=== PATIENT | male | born 1950 | race Hispanic/Latino ===

== ENCOUNTER 2018-09-01 15:02 | Inpatient (IN) | payer MEDICARE ==
[~2018-09-01] VITALS: Ht 160 cm; Wt 69.4 kg
[2018-09-01 15:29] LABS: BASOPHILS % (AUTO) 0.9 % (0.0-5.0); EOSINOPHILS % (AUTO) 0.1 % (0.0-8.0); HEMATOCRIT 42.9 % (42-54); MEAN CORPUSCULAR HEMOGLOBIN 31.4 pg (27.0-33.0); MEAN CORPUSCULAR HGB CONC 33.3 g/dL (32.0-36.0); MEAN CORPUSCULAR VOLUME 94.4 fL (79-99); MONOCYTES % (AUTO) 7.8 % (3.0-13.0); NEUTROPHILS % (AUTO) 84.2 % (40.0-77.0); PLATELET COUNT (AUTO) 193 K/uL (130-400); RED BLOOD CELL COUNT(AUTO) 4.54 MIL/uL (4.50-6.20); RED CELL DISTRIBUTION WIDTH 15.7 % (11.0-15.5); WHITE BLOOD COUNT (AUTO) 6.2 K/uL (4.8-10.8)
[2018-09-01 15:31] LABS: APPEARANCE,URINE Clear (CLEAR); BILIRUBIN,URINE Small (NEGATIVE); GLUCOSE, URINE (UA) Negative (NEGATIVE); KETONES,URINE Trace mg/dL (NEGATIVE); LEUKOCYTE ESTERASE ,URINE Trace (NEGATIVE); NITRATE,URINE Positive (NEGATIVE); OCCULT BLOOD,URINE Negative (NEGATIVE); PH,URINE 5.5 (5.0-8.0); PROTEIN,URINE 300 (NEGATIVE)
[2018-09-01 15:45] LABS: RBC,URINE None Seen /HPF (0-1); WBC,URINE 0-1 /HPF (0-1)
[2018-09-01 15:46] LABS: BACTERIA,URINE Few /HPF (None Seen); COLOR,URINE Dark Yellow (YELLOW)
[2018-09-01 15:47] LABS: SQUAMOUS EPITHELIAL CELL,UR None Seen /HPF (0-2)
[2018-09-01 16:16] LABS: CREATININE 1.1 mg/dL (0.5-1.5); POTASSIUM 4.1 mmol/L (3.5-5.1)
[2018-09-01 16:21] LABS: ALBUMIN 3.2 g/dL (3.5-5.0); BILIRUBIN,TOTAL 1.7 mg/dL (0.2-1.0); TOTAL PROTEIN, SERUM 7.7 g/dL (6.0-8.3)
[2018-09-01] MEDS ORDERED: FUROSEMIDE 10 MG/ML 4ML VIAL ONE (17:02)
[2018-09-01] MEDS ORDERED: HYDRALAZINE HCL 20 MG/ML VIAL IV PRN (18:00)
[2018-09-01] MEDS ORDERED: MAG HYDROX/AL HYDROX/SIMETH ES 30 ML SUSP UDCUP PO PRN (18:00)
[2018-09-01] MEDS ORDERED: ZOLPIDEM TARTRATE 5 MG TAB PO PRN (18:00)
[2018-09-01] MEDS ORDERED: ACETAMINOPHEN 325 MG TAB PO PRN (18:00)
[2018-09-01] MEDS ORDERED: PHARMACY COMMUNICATION MISC SCH ×2 (18:00→21:30)
[2018-09-01] MEDS ORDERED: ONDANSETRON HCL 4 MG/2 ML VIAL IV PRN (18:00)
[2018-09-01] MEDS: LEVOFLOXACIN 500 MG/D5W 100 ML 100 ML IV SCH (18:00)
[2018-09-01] MEDS: SPIRONOLACTONE 25 MG TAB PO SCH (18:00)
[2018-09-01] MEDS ORDERED: SPIRONOLACTONE 25 MG TAB ONE (19:31)
[2018-09-01] MEDS ORDERED: LEVOFLOXACIN 500 MG/D5W 100 ML 100 ML ONE (19:31)
[2018-09-01 19:35] LABS: INR 1.18 (0.85-1.15); PROTHROMBIN TIME 12.4 SEC (9.6-11.6)
[2018-09-01 19:40] LABS: HEMOGLOBIN A1C 6.3 % (4.0-6.0)
[2018-09-01 20:45] VITALS: BP 134/95
[2018-09-01] MEDS: BUMETANIDE IV SCH (20:56)
[2018-09-01] MEDS ORDERED: LORAZEPAM 2 MG/ML 1 ML VIAL IVP PRN (21:15)
[2018-09-01] MEDS ORDERED: CHLORDIAZEPOXIDE HCL 25 MG CAP ONE (21:27)
[2018-09-01] MEDS: CHLORDIAZEPOXIDE HCL 25 MG CAP PO SCH (22:00)
[2018-09-01] MEDS: FOLIC ACID IV SCH (23:12)
[2018-09-01] MEDS: M V I IV SCH (23:12)
[2018-09-01] MEDS: THIAMINE IV SCH (23:12)
[2018-09-01] MEDS: [UNRECOGNIZED DRUG - OTHER] IV SCH (23:12)
[2018-09-01] MEDS ORDERED: PNEUMOCOCCAL VACCINE POLYVALENT 0.5 ML/VIAL [PPV] IM ONE (23:15)
[2018-09-01] MEDS ORDERED: ASPI-555 PO (23:29)
[2018-09-02] VITALS: BP 128/84
[2018-09-02] MEDS: BUMETANIDE IV SCH ×2 (01:55→11:39)
[2018-09-02] MEDS ORDERED: PNEUMOCOCCAL VACCINE POLYVALENT 0.5 ML/VIAL [PPV] ONE ×2 (02:30→02:32)
[2018-09-02 04:00] VITALS: BP 130/86
[2018-09-02] MEDS: CHLORDIAZEPOXIDE HCL 25 MG CAP PO SCH ×3 (07:01→22:36)
[2018-09-02 08:00] VITALS: BP 136/89
[2018-09-02] MEDS ORDERED: PANTOPRAZOLE 40 MG/VIAL IVP SCH (09:00)
[2018-09-02] MEDS: SPIRONOLACTONE 25 MG TAB PO SCH (09:40)
[2018-09-02] MEDS: THIAMINE HCL 100 MG TABLET PO SCH (09:41)
[2018-09-02] MEDS: FOLIC ACID/VITAMIN B COMP W-C 1 MG CAPSULE PO SCH (09:41)
[2018-09-02] MEDS: ENOXAPARIN SODIUM 30 MG/0.3 ML SQ SCH (09:42)
[2018-09-02 10:35] LABS: HEMATOCRIT 43.6 % (42-54); MEAN CORPUSCULAR HEMOGLOBIN 30.4 pg (27.0-33.0); MEAN CORPUSCULAR HGB CONC 32.3 g/dL (32.0-36.0); MEAN CORPUSCULAR VOLUME 94.1 fL (79-99); PLATELET COUNT (AUTO) 153 K/uL (130-400); RED BLOOD CELL COUNT(AUTO) 4.64 MIL/uL (4.50-6.20); RED CELL DISTRIBUTION WIDTH 15.9 % (11.0-15.5); WHITE BLOOD COUNT (AUTO) 6.2 K/uL (4.8-10.8)
[2018-09-02 10:41] LABS: INR 1.27 (0.85-1.15); PARTIAL THROMBOPLASTIN TIME 33.7 SEC (26.3-35.5); PROTHROMBIN TIME 13.3 SEC (9.6-11.6)
[2018-09-02 11:12] LABS: BILIRUBIN,TOTAL 2.2 mg/dL (0.2-1.0); POTASSIUM 3.9 mmol/L (3.5-5.1); THYROID STIMULATING HORMONE 3.16 uIU/mL (0.36-3.74); TOTAL PROTEIN, SERUM 7.6 g/dL (6.0-8.3)
[2018-09-02 11:55] VITALS: BP 144/93
[2018-09-02 16:00] VITALS: BP 111/84
[2018-09-02] MEDS: LEVOFLOXACIN 500 MG/D5W 100 ML 100 ML IV SCH (17:30)
[2018-09-02 20:00] VITALS: BP 113/68
[2018-09-03] VITALS (13 sets, daily range): BP systolic 90–107; BP diastolic 56–73
[2018-09-03 05:23] LABS: BASOPHILS % (AUTO) 0.9 % (0.0-5.0); EOSINOPHILS % (AUTO) 0.5 % (0.0-8.0); HEMATOCRIT 39.2 % (42-54); LYMPHOCYTES % (AUTO) 11.6 % (21.0-51.0); MEAN CORPUSCULAR HEMOGLOBIN 31.3 pg (27.0-33.0); MEAN CORPUSCULAR HGB CONC 33.3 g/dL (32.0-36.0); MONOCYTES % (AUTO) 15.8 % (3.0-13.0); NEUTROPHILS % (AUTO) 71.2 % (40.0-77.0); PLATELET COUNT (AUTO) 162 K/uL (130-400); RED BLOOD CELL COUNT(AUTO) 4.17 MIL/uL (4.50-6.20); RED CELL DISTRIBUTION WIDTH 15.7 % (11.0-15.5)
[2018-09-03 05:29] LABS: POTASSIUM 3.2 mmol/L (3.5-5.1)
[2018-09-03] MEDS: CHLORDIAZEPOXIDE HCL 25 MG CAP PO SCH ×3 (05:50→22:13)
[2018-09-03] MEDS: PANTOPRAZOLE SODIUM 40 MG TABLET.DR PO SCH (07:02)
[2018-09-03] MEDS: ENOXAPARIN SODIUM 30 MG/0.3 ML SQ SCH (09:00)
[2018-09-03] MEDS: THIAMINE HCL 100 MG TABLET PO SCH (10:41)
[2018-09-03] MEDS: FOLIC ACID/VITAMIN B COMP W-C 1 MG CAPSULE PO SCH (10:42)
[2018-09-03] MEDS: SPIRONOLACTONE 25 MG TAB PO SCH (10:42)
[2018-09-03 13:04] LABS: ALBUMIN,BODY FLUID 2.1 g/dL
[2018-09-03 13:49] LABS: APPEARANCE BODY FLUID SLIGHTLY CLOUDY (CLEAR); COLOR,BODY FLUID DARK YELLOW (LT YELLOW); SPECIMENTYPE,BODY FLUID PARACENTESIS; TOTAL VOLUME,BODY FLUID 2000 mL
[2018-09-03 13:50] LABS: BODY FLUID RBC 3250 /cu. mm.; BODY FLUID WBC 272 /cu. mm.
[2018-09-03 14:02] LABS: BF LYMPHOCYTE 85 %; BF MESOTHELIAL 13 %; BF MONOCYTE 1 %
[2018-09-03] MEDS: THIAMINE IV SCH (15:34)
[2018-09-03] MEDS: FOLIC ACID IV SCH (15:34)
[2018-09-03] MEDS: M V I IV SCH (15:34)
[2018-09-03] MEDS: [UNRECOGNIZED DRUG - OTHER] IV SCH (15:34)
[2018-09-03] MEDS ORDERED: LIDOCAINE HCL MPF 1% 5ML VIAL ONE (16:44)
[2018-09-03] MEDS: LEVOFLOXACIN 500 MG/D5W 100 ML 100 ML IV SCH (19:28)
[2018-09-04 04:00] VITALS: BP 106/70
[2018-09-04] MEDS: CHLORDIAZEPOXIDE HCL 25 MG CAP PO SCH ×2 (06:09→14:00)
[2018-09-04] MEDS: PANTOPRAZOLE SODIUM 40 MG TABLET.DR PO SCH (06:16)
[2018-09-04] MEDS: FOLIC ACID/VITAMIN B COMP W-C 1 MG CAPSULE PO SCH (07:21)
[2018-09-04] MEDS: THIAMINE HCL 100 MG TABLET PO SCH (07:22)
[2018-09-04] MEDS: SPIRONOLACTONE 25 MG TAB PO SCH (07:22)
[2018-09-04] MEDS: ENOXAPARIN SODIUM 30 MG/0.3 ML SQ SCH (07:22)
[2018-09-04 07:51] VITALS: BP 106/71
[2018-09-04] MEDS: THIAMINE IV SCH (09:00)
[2018-09-04] MEDS: [UNRECOGNIZED DRUG - OTHER] IV SCH (09:00)
[2018-09-04] MEDS: M V I IV SCH (09:00)
[2018-09-04] MEDS: FOLIC ACID IV SCH (09:00)
[2018-09-04 11:44] VITALS: BP 103/64
[2018-09-04 15:36] VITALS: BP 104/68
== END 2018-09-04 19:10 | disposition home or self-care (01) | DRG 433 ==
LOC: EDH 15:02 → 3CH 17:59 → 3BH 20:16
PROVIDERS: ADMIT Internal Medicine; ATTEND Internal Medicine
PROC: 3E0234Z Introduction of Serum, Toxoid and Vaccine into Muscle, Percutaneous Approach (ICD-10-PCS; 2018-09-01)
PROC: 0W9G30Z Drainage of Peritoneal Cavity with Drainage Device, Percutaneous Approach (ICD-10-PCS; principal; 2018-09-03)
DX: K70.31 Alcoholic cirrhosis of liver with ascites (principal); E51.9 Thiamine deficiency, unspecified; F10.20 Alcohol dependence, uncomplicated; E87.70 Fluid overload, unspecified; D69.6 Thrombocytopenia, unspecified; Z23 Encounter for immunization
CPT/HCPCS: 36415; 49083; 71045; 74176; 80048; 80053; 81001; 82040; 82042; 82140; 82948; 83036; 83690; 83880; 84157; 84443; 85025; 85027; 85610; 85730; 87071; 87088; 87205; 88108; 88305; 89051; 90732; 93005; C9113; G0009; J1650; J1940; J1956; J3411; J3490; J7030

== ENCOUNTER → 2018-09-25 | Outpatient (CLI) | payer MEDICARE ==
[~2018-09-25] MED LIST: APIX5TAB PO; ASPI-555 PO; CEPH-578 PO; FURO20TA6 PO; SANTO TP
== END | disposition home or self-care (01) ==
LOC: OIH 10:08
PROVIDERS: ATTEND Internal Medicine
DX: J90 Pleural effusion, not elsewhere classified (principal); M19.072 Primary osteoarthritis, left ankle and foot; M77.32 Calcaneal spur, left foot; L97.522 Non-pressure chronic ulcer of other part of left foot with fat layer exposed; I11.0 Hypertensive heart disease with heart failure; I50.9 Heart failure, unspecified; M47.895 Other spondylosis, thoracolumbar region; Z72.89 Other problems related to lifestyle
CPT/HCPCS: 71046; 73620